=== PATIENT | female | born 1940 | race Two or more races ===

== ENCOUNTER 2017-12-17 11:51 | Outpatient (CLI) | payer OTHER | END 2017-12-17 15:00 | disposition home or self-care (01) | LOC: RAD 11:51 | DX: M15.8 Other polyosteoarthritis (principal); M19.90 Unspecified osteoarthritis, unspecified site; M54.12 Radiculopathy, cervical region; M79.1 Myalgia ==

== ENCOUNTER 2018-04-29 09:50 | Outpatient (CLI) | payer OTHER | END 2018-04-29 09:55 | disposition home or self-care (01) | LOC: MAMO-SONO 09:50 | DX: Z12.31 Encounter for screening mammogram for malignant neoplasm of breast (principal); Z87.898 Personal history of other specified conditions; N64.4 Mastodynia; N63.10 Unspecified lump in the right breast, unspecified quadrant; N63.20 Unspecified lump in the left breast, unspecified quadrant; N60.11 Diffuse cystic mastopathy of right breast; E04.2 Nontoxic multinodular goiter ==

== ENCOUNTER → 2019-04-13 08:42 | Outpatient (CLI) | payer OTHER | END | disposition home or self-care (01) | LOC: TOM 07:45 | DX: R10.33 Periumbilical pain (principal); R63.4 Abnormal weight loss | CPT/HCPCS: 74178; Q9965 ==

== ENCOUNTER 2019-07-17 09:27 | Outpatient (CLI) | payer OTHER | END 2019-07-17 09:35 | disposition home or self-care (01) | LOC: MAMO-SONO 09:27 | DX: Z12.31 Encounter for screening mammogram for malignant neoplasm of breast (principal); N60.11 Diffuse cystic mastopathy of right breast; N60.12 Diffuse cystic mastopathy of left breast ==

== ENCOUNTER 2019-10-10 09:52 | Outpatient (CLI) | payer OTHER | END 2019-10-10 09:54 | disposition home or self-care (01) | LOC: SONOGRAMA 09:52 | DX: E03.1 Congenital hypothyroidism without goiter (principal); E04.2 Nontoxic multinodular goiter ==

== ENCOUNTER → 2019-10-24 | Outpatient (CLI) | payer OTHER | END | disposition home or self-care (01) | LOC: RAD 12:27 | DX: M54.6 Pain in thoracic spine (principal) ==

== ENCOUNTER 2021-05-13 15:16 | Outpatient (CLI) | payer OTHER | END 2021-05-13 15:25 | disposition home or self-care (01) | LOC: SONOGRAMA 15:16 | PROVIDERS: ATTEND Obstetrics & Gynecology Maternal & Fetal Medicine | DX: N20.0 Calculus of kidney (principal) ==

== ENCOUNTER 2021-08-25 14:54 | Outpatient (CLI) | payer OTHER | END 2021-08-25 15:04 | disposition home or self-care (01) | LOC: MAMO-SONO → RAD 14:54 | DX: M17.11 Unilateral primary osteoarthritis, right knee (principal) ==

== ENCOUNTER 2021-12-10 16:30 | Outpatient (CLI) | payer OTHER | END 2021-12-10 16:31 | disposition home or self-care (01) | LOC: RAD 16:30 | PROVIDERS: ATTEND Urology | DX: R06.02 Shortness of breath (principal); M48.26 Kissing spine, lumbar region ==

== ENCOUNTER 2022-03-10 14:58 | Outpatient (CLI) | payer OTHER | END 2022-03-10 15:10 | disposition home or self-care (01) | LOC: MAMO-SONO 14:58 | PROVIDERS: ATTEND Internal Medicine | DX: Z12.31 Encounter for screening mammogram for malignant neoplasm of breast (principal) ==

== ENCOUNTER 2022-03-16 09:33 | Outpatient (CLI) | payer OTHER | END 2022-03-16 09:51 | disposition home or self-care (01) | LOC: TOM 09:33 | PROVIDERS: ATTEND Internal Medicine | DX: R91.1 Solitary pulmonary nodule (principal); R91.8 Other nonspecific abnormal finding of lung field; E03.9 Hypothyroidism, unspecified; I10 Essential (primary) hypertension; E55.9 Vitamin D deficiency, unspecified; M99.02 Segmental and somatic dysfunction of thoracic region ==

== ENCOUNTER 2022-10-19 15:21 | Outpatient (CLI) | payer OTHER | END 2022-10-19 15:31 | disposition home or self-care (01) | LOC: SONOGRAMA 15:21 | PROVIDERS: ATTEND Internal Medicine | DX: E03.9 Hypothyroidism, unspecified (principal) ==